=== PATIENT | female | born 1960 | race Caucasian/White ===

== ENCOUNTER 2022-05-27 06:58 | Day surgery (SDC) | payer OTHER ==
[2022-05-20 10:44] LABS: BASOPHILS % (AUTO) 1.2 % (0-1); EOSINOPHILS % (AUTO) 0.6 % (0-6); LYMPHOCYTES # (AUTO) 0.9 X10'3 (1.1-4.8); LYMPHOCYTES % (AUTO) 23.7 % (21-51); MEAN CORPUSCULAR HGB CONC 34.2 g/dL (33.0-36.5); MEAN CORPUSCULAR VOLUME 96.4 FL (78-98); MEAN PLATELET VOLUME 7.2 FL (7.4-10.4); MONOCYTES # (AUTO) 0.2 X10'3 (0-0.9); MONOCYTES % (AUTO) 5.3 % (2-12); NEUTROPHILS # (AUTO) 2.6 X10'3 (1.8-7.7); NEUTROPHILS % (AUTO) 69.2 % (42-75); PRE OP HEMATOCRIT 39.2 % (35.0-45.0); PRE OP HEMOGLOBIN 13.4 g/dL (12.0-16.0); PRE OP PLATELET COUNT 230 X10'3 (140-440); RED BLOOD COUNT 4.07 X10'6 (4.20-5.60); RED CELL DISTRIBUTION WIDTH 13.5 % (11.5-14.5)
[2022-05-20 11:06] LABS: ALBUMIN 4.1 G/DL (3.4-5.0); ALBUMIN/GLOBULIN RATIO 1.4 (1.1-1.5); ALKALINE PHOSPHATASE 49 IU/L (46-116); BLOOD UREA NITROGEN 22 MG/DL (7-18); BUN/CREATININE RATIO 36.1 (6.6-38.0); CALCIUM 9.1 MG/DL (8.5-10.1); CHLORIDE 92 MMOL/L (99-107); CREATININE 0.61 MG/DL (0.40-0.90); PRE OP ALT 40 U/L (30-65); PRE OP ANION GAP 5 (8-16); PRE OP AST 51 U/L (10-37); PRE OP BILIRUB, TOTAL 0.3 MG/DL (0.0-1.0); PRE OP GLUCOSE 95 MG/DL (70-104); PRE OP POTASSIUM 4.5 MMOL/L (3.4-5.1); TOTAL CARBON DIOXIDE 29.4 MMOL/L (24-32); eGFR > 90 ML/MIN
[2022-05-20 11:20] LABS: PRE OP SODIUM 126 MMOL/L (135-145)
[~2022-05-27] VITALS: Ht 157.5 cm; Wt 45.0 kg
[~2022-05-27 06:58] MED LIST: BACL10TA2 PO; BUPIVAcaine/PF 5 mg/ml 10ml ONE; CROM40SP BOTHNARES; DEXT5TAB31 PO; ESTR42.510; ESZO2TAB31 PO; FEXO-25 PO; LEVO100T9 PO; LIOT5TAB10 PO; TRAZ-251 PO; TRET20CR34; cefazolin 2gm/D5W 100mL 100 ML IV ONE; famotidine 20mg tablet PO ONE; ringers solution, lacted 1,000 ML IV SCH
[2022-05-27 07:20] VITALS: BP 128/84
[2022-05-27] MEDS ORDERED: LIDOcaine 0.5% (5mg/ml) 50ml vial ONE (08:07)
[2022-05-27] MEDS ORDERED: ondansetron/PF 4mg/2ml inj IV PRN (08:30)
[2022-05-27] MEDS ORDERED: acetaminophen 1,000mg/100ml IV 100 ML IV PRN (08:30)
[2022-05-27] MEDS ORDERED: fentaNYL/PF 50MCG/1 ML 2ML syringe IV PRN ×2 (08:30)
[2022-05-27] MEDS ORDERED: proCHLORperazine 10 MG/2 ml inj IV PRN (08:30)
[2022-05-27] MEDS ORDERED: morphine 2 MG/ML inj. syringe IV PRN (08:30)
[2022-05-27] MEDS ORDERED: ringers solution, lacted 1,000 ML IV SCH (08:30)
[2022-05-27] MEDS ORDERED: fentaNYL/PF 50MCG/1 ML 2ML syringe ONE (09:36)
[2022-05-27] MEDS ORDERED: midazolam 1 mg/ML 2ml injection ONE (09:36)
[2022-05-27] MEDS ORDERED: BUPIVAcaine/PF 2.5 mg/ml (0.25%) 30ml vial ONE (10:05)
[2022-05-27] MEDS ORDERED: propofol inj 20 ML IV ONE (10:23)
[2022-05-27 10:35] VITALS: BP 116/81
--- NOTE | 2022-05-27 10:35 | NUR ---
Received from OR via [facility], accompanied by Anesthesiologist and report given by [facility] Anesthesiologist. PATIENT AWAKE AND ALERT, DENIES PAIN, V/S WNL, PIV 20G TO RUE, LEFT WRIST DRESSING C/D/I. ICE AND ELEVATED LUE. Addendum: 05/27/22 at 1054 by Richy Oden RN Amended: Links added.
[2022-05-27 10:40] VITALS: BP 116/81
[2022-05-27 10:50] VITALS: BP 127/90
--- NOTE | 2022-05-27 11:15 | NUR ---
ALL DISCHARGE CRITERIA HAS BEEN MET. VSS, PAIN AT A TOLERABLE LEVEL, VOIDING AND ABLE TO SAFELY AMBULATE AND TRANSFER SELF. IV TAKEN OUT WITHOUT ANY COMPLICATIONS. ALL DISCHARGE INSTRUCTIONS COVERED WITH PATIENT AND ALL QUESTIONS ANSWERED. PATIENT TAKEN OUT VIA WHEELCHAIR WITH ALL BELONGINGS TO PERSONAL VEHICLE WHERE FAMILY DROVE PATIENT HOME. Addendum: 05/27/22 at 1122 by Richy Oden RN Amended: Links added.
== END 2022-05-27 11:15 | disposition home or self-care (01) ==
LOC: PAS 06:58
PROVIDERS: ATTEND Orthopaedic Surgery Hand Surgery
DX: M18.12 Unilateral primary osteoarthritis of first carpometacarpal joint, left hand (principal); M25.342 Other instability, left hand; G47.33 Obstructive sleep apnea (adult) (pediatric); F32.A Depression, unspecified; Q79.60 Ehlers-Danlos syndrome, unspecified; Z98.890 Other specified postprocedural states; Z90.710 Acquired absence of both cervix and uterus; Z79.899 Other long term (current) drug therapy; Z72.89 Other problems related to lifestyle
CPT/HCPCS: 25310; 25447; 26437; 36415; 80053; 82948; 85025; J0690; J2250; J2704; J3010; J3490; J7030; J7120; Z7506; Z7508; Z7512; A4215; A4565; A4618; A7000